=== PATIENT | female | born 1945 | race Caucasian/White ===

== ENCOUNTER → 2017-05-12 | Outpatient (CLI) | payer MEDICARE, OTHER ==
--- NOTE | 2017-05-12 16:39 | KCIC ---
Examination: 2 views of the left hand HISTORY: History of left hand swelling, bruising for one week COMPARISON: None available FINDINGS: The alignment of the metacarpophalangeal joints, interphalangeal grossly appears unremarkable. There is no obvious acute fracture identified. Severe degenerative changes identified in the first carpometacarpal joint with osteophyte formation. Mild degenerative changes identified in the third DIP joint. IMPRESSION: 1. Severe degenerative changes first carpometacarpal joint. Electronically signed by: Harish Orozco MD (05/12/2017 4:36 PM) [id number]
== END | disposition home or self-care (01) ==
LOC: KCIC 16:15
PROVIDERS: ATTEND Nurse Practitioner
DX: M19.042 Primary osteoarthritis, left hand (principal); M79.89 Other specified soft tissue disorders
CPT/HCPCS: 73120